=== PATIENT | female | born 1990 | race Caucasian/White ===

== ENCOUNTER → 2021-12-12 | Outpatient (CLI) | payer OTHER | END | disposition home or self-care (01) | LOC: RAD 13:59 | PROVIDERS: ATTEND Orthopaedic Surgery | DX: S93.421A Sprain of deltoid ligament of right ankle, initial encounter (principal) ==

== ENCOUNTER 2025-08-08 08:45 | Inpatient (IN) | payer OTHER ==
[~2025-08-08] VITALS: Ht 160 cm; Wt 108.9 kg
[2025-08-08] MEDS ORDERED: MULTIPLE VITAM1 EAC2 PO (10:42)
[2025-08-08 11:35] LABS: BASO % 0.1 % (0.1-1.2); EOS # 0.05 (0.04-0.54); EOS % 0.7 % (0.7-7.0); LYMPH # 1.33 (1.18-3.74); LYMPH % 18.0 % (19.3-53.1); MEAN PLATELET VOLUME 10.00 fl (9.4-12.4); MONO # 0.45 (0.24-0.82); MONO % 6.1 % (4.7-12.5); NEUT # 5.51 (1.56-6.13); NEUT % 74.6 % (34.0-71.1); RED CELL DISTRIBUTION WIDTH 13.1 % (11.6-14.4)
[2025-08-08 12:13] LABS: ALT/SGPT 45.0 U/L (12-78); AST/SGOT 18.0 U/L (15-37); BILIRUBIN TOTAL 0.41 mg/dL (0.3-1.2); BUN CREA RATIO 19.0 (7.0-25.0); CREATININE SERUM 0.37 mg/dL (0.55-1.02); GFR 197.61; GLOBULINA 3.3 G/DL (2.4-3.5); GLUCOSE FASTING 97.0 mg/dL (65-100); INR < 0.93; OSMOLALITY SERUM 277.0 MOSM/KG (275-295)
[2025-08-16 07:23] VITALS: BP 113/69
[2025-08-16] MEDS ORDERED: OXYTOCIN 10 UNITS/ML VIAL ONE (08:08)
[2025-08-16] MEDS ORDERED: ERYTHROMYCIN BASE OPHT 1GM EACH TUBE OP ONE (08:08)
[2025-08-16] MEDS ORDERED: CITRIC ACID/SODIUM CITRATE 30 ML BLIST.PACK PO ONE (08:08)
[2025-08-16] MEDS ORDERED: CEFAZOLIN SODIUM 1,000 MG VIAL ONE (08:09)
[2025-08-16] MEDS ORDERED: MORPHINE SULFATE 4 MG/ML VIAL IV PRN (10:45)
[2025-08-16] MEDS ORDERED: RINGERS SOLUTION,LACTATED 1,000 ML IV SCH (10:45)
[2025-08-16] MEDS ORDERED: OXYTOCIN 1,000 ML IV ONE (10:45)
[2025-08-16] MEDS ORDERED: ONDANSETRON HCL 2 MG/ML VIAL IV SCH (12:00)
[2025-08-16] MEDS ORDERED: ACETAMINOPHEN 500 MG GEL..CAP PO SCH (12:00)
[2025-08-16] MEDS ORDERED: GABAPENTIN 300 MG CAPSULE PO SCH (13:00)
[2025-08-16 16:31] VITALS: BP 103/70
[2025-08-16] MEDS ORDERED: SIMETHICONE 125 MG CAPSULE PO SCH (17:00)
[2025-08-16 20:43] VITALS: BP 106/54
[2025-08-17] VITALS: BP 130/80
[2025-08-17 06:50] LABS: BASO % 0.2 % (0.1-1.2); EOS # 0.05 (0.04-0.54); EOS % 0.5 % (0.7-7.0); LYMPH # 1.30 (1.18-3.74); LYMPH % 12.6 % (19.3-53.1); MEAN PLATELET VOLUME 10.10 fl (9.4-12.4); MONO # 0.96 (0.24-0.82); MONO % 9.3 % (4.7-12.5); NEUT # 7.91 (1.56-6.13); NEUT % 77.0 % (34.0-71.1); RED CELL DISTRIBUTION WIDTH 13.2 % (11.6-14.4)
[2025-08-17 08:00] VITALS: BP 97/60
[2025-08-17] MEDS ORDERED: OxyCODONE HCL 5 MG TABLET (ROXICODONE) PO PRN (08:00)
[2025-08-17] MEDS ORDERED: DOCUSATE SODIUM 100MG CAP PO SCH (09:00)
[2025-08-17 16:59] VITALS: BP 105/68
[2025-08-18] VITALS: BP 118/81
[2025-08-18 08:45] VITALS: BP 118/76
[2025-08-18 13:09] VITALS: BP 124/75
== END 2025-08-18 17:41 | disposition home or self-care (01) | DRG 788 ==
LOC: O/R 08-16 07:00 → OB/GYN 08-16 07:00
PROVIDERS: ADMIT Obstetrics & Gynecology; ATTEND Obstetrics & Gynecology
PROC: 0UB90ZZ Excision of Uterus, Open Approach (ICD-10-PCS; 2025-08-16)
PROC: 4A1HXCZ Monitoring of Products of Conception, Cardiac Rate, External Approach (ICD-10-PCS; 2025-08-16)
PROC: 10D00Z1 Extraction of Products of Conception, Low, Open Approach (ICD-10-PCS; principal; 2025-08-16 12:45)
DX: O34.13 Maternal care for benign tumor of corpus uteri, third trimester (principal); D25.9 Leiomyoma of uterus, unspecified; O34.211 Maternal care for low transverse scar from previous cesarean delivery; Z3A.37 37 weeks gestation of pregnancy; Z37.0 Single live birth